=== PATIENT | male | born 1955 | race Caucasian/White ===

== ENCOUNTER 2017-12-20 19:45 | Emergency (ER) | payer OTHER, MEDICAID ==
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
[2017-12-20] MEDS ORDERED: TDAP ADULT 0.5 ML INJ (BOOSTRIX) IM ONE (19:50)
[2017-12-20] MEDS ORDERED: ceFAZolin 2 GM/DEXTROSE 100 ML IV ONE (20:02)
[2017-12-20 20:03] LABS: PLATELET COUNT 238 10^3/uL (150-400)
[2017-12-20] MEDS ORDERED: fentaNYL 100 MCG/2 ML INJ ONE (20:06)
[2017-12-20] MEDS ORDERED: CEFAZOLIN 1 GM/DEXTROSE/50 ML BAG IV ONE (20:06)
[2017-12-20] MEDS ORDERED: fentaNYL 100 MCG/2 ML INJ IVP ONE (20:08)
[2017-12-20 20:11] LABS: INR 0.95 (0.83-1.16); PROTIME(PATIENT) 12.9 SEC (12.0-15.0)
[2017-12-20] MEDS ORDERED: HYDROmorphONE/DILAUDID 2 MG/ML INJ IVP ONE (20:27)
[2017-12-20 20:40] VITALS: BP 114/78
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
== END 2017-12-20 20:40 | disposition short-term general hospital (02) ==
LOC: EDUNIT#
DX: S52.514 Nondisplaced fracture of right radial styloid process (principal); S62.326B Displaced fracture of shaft of fifth metacarpal bone, right hand, initial encounter for open fracture; S62.320A Displaced fracture of shaft of second metacarpal bone, right hand, initial encounter for closed fracture; S62.322A Displaced fracture of shaft of third metacarpal bone, right hand, initial encounter for closed fracture; S62.324A Displaced fracture of shaft of fourth metacarpal bone, right hand, initial encounter for closed fracture; S62.642A Nondisplaced fracture of proximal phalanx of right middle finger, initial encounter for closed fracture; V48.1XXA Car passenger injured in noncollision transport accident in nontraffic accident, initial encounter; Y92.410 Unspecified street and highway as the place of occurrence of the external cause; Y99.8 Other external cause status; Z23 Encounter for immunization
CPT/HCPCS: 82435-PO; 82565-PO; 82947-PO; 84132-PO; 84295-PO; 84520-PO; 85014-PO; 96365; G0480; J0690; J1170; J3010

== ENCOUNTER 2018-01-03 11:21 | Emergency (ER) | payer OTHER, MEDICAID ==
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
[2018-01-03 13:01] VITALS: BP 130/78
== END 2018-01-03 13:01 | disposition home or self-care (01) ==
PROC: 2W3EX1Z Immobilization of Right Hand using Splint (ICD-10-PCS; principal; 2018-01-03)
DX: S62.326A Displaced fracture of shaft of fifth metacarpal bone, right hand, initial encounter for closed fracture (principal); F17.200 Nicotine dependence, unspecified, uncomplicated